=== PATIENT | female | born 1970 ===

== ENCOUNTER → 2021-10-05 | Outpatient (CLI) | payer BC ==
[~2021-10-05] MED LIST: CATHETER FLUSH 10 ML SYR IV PRN; HOLD METFORMIN - RECEIVED CONTRAST 20 ML VIAL IV SCH; IOHEXOL 350 MG/ML 100 ML (OMNIPAQUE 350) VIAL IV ONE; NS 100 ML (IVPB) BAG IV ONE
[2021-10-05 08:45] LABS: CREATININE SERUM 0.78 MG/DL (0.60-1.30)
--- NOTE | 2021-10-05 11:09 | Diagnostic Imaging Report ---
PROCEDURE: CT abdomen and pelvis with contrast. TECHNIQUE: Multiple contiguous axial images were obtained through the abdomen and pelvis after administration of intravenous contrast. Auto Exposure Controls were utilized during the CT exam to meet ALARA standards for radiation dose reduction. All CT scans use one or more of the following dose optimizing techniques: automated exposure control, MA and/or KvP adjustment based on patient size and exam type or iterative reconstruction. INDICATION: Abdominal pain, polyp of the sigmoid colon. COMPARISON: None available. FINDINGS: The visualized lung bases are clear. 0.8 cm hypodensity is identified within the right hepatic lobe, which is too small to completely characterize, series 2, image 35 and series 601 image 73. The spleen is unremarkable. The adrenal glands are unremarkable. The pancreas is unremarkable. The gallbladder is unremarkable. Punctate nonobstructing calculi versus early excretion of contrast is noted within the inferior poles of the bilateral kidneys. Bilateral kidneys are otherwise unremarkable. No evidence of hydroureteronephrosis. Minimal vascular calcifications without aneurysmal dilatation of the abdominal aorta. The appendix is unremarkable. Mural thickening of the urinary bladder, though the urinary bladder is not well-distended. 2.2 cm hypoechoic round cyst noted within the left adnexa. The right adnexa is unremarkable. The uterus appears unremarkable for age. Metallic density likely related to a surgical clip is identified within the mid to proximal sigmoid colon. Mild colonic diverticulosis without CT evidence of diverticulitis. No bowel obstruction or pneumatosis. No significant adenopathy, free air, or free fluid within the abdomen or pelvis. Mild scattered osseous degenerative changes without acute osseous abnormality. IMPRESSION: Metallic density likely related to a surgical clip is noted within the proximal to mid sigmoid colon. Subcentimeter hypodensity within the right hepatic lobe, which is too small to completely characterize. This is indeterminate based on this examination. Comparison to prior imaging may be beneficial. If no prior imaging is available, a follow-up CT of abdomen with contrast is recommended within 6 months as given small size, further imaging at this time would likely not be beneficial. Mural thickening of the urinary bladder, favored related to poor distention, though cystitis is an additional consideration. Left adnexal cyst measuring 2.2 cm. This appears to have a nonaggressive appearance. Punctate nonobstructing bilateral renal calculi versus early excretion of contrast. Dictated by: Dictated on workstation # [id number]
== END ==
LOC: EDBD 08:45 → RAD 08:45
PROVIDERS: ATTEND Surgery
DX: D12.5 Benign neoplasm of sigmoid colon (principal); N83.292 Other ovarian cyst, left side; K76.9 Liver disease, unspecified; N30.90 Cystitis, unspecified without hematuria
CPT/HCPCS: 36415; 74177; 82565; 84520